=== PATIENT | female | born 1950 | race Caucasian/White ===

== ENCOUNTER → 2017-06-08 | Outpatient (CLI) | payer OTHER, MEDICAID | LOC: BHLMT 14:30 | PROVIDERS: ATTEND Internal Medicine Cardiovascular Disease | DX: I48.0 Paroxysmal atrial fibrillation (principal); I48.92 Unspecified atrial flutter; I50.43 Acute on chronic combined systolic (congestive) and diastolic (congestive) heart failure; I35.1 Nonrheumatic aortic (valve) insufficiency; I47.2 Ventricular tachycardia; E66.01 Morbid (severe) obesity due to excess calories; Z72.0 Tobacco use; Z95.810 Presence of automatic (implantable) cardiac defibrillator | CPT/HCPCS: 93005-PO ==